=== PATIENT | male | born 1980 | race Two or more races ===

== ENCOUNTER 2021-10-19 10:31 | Inpatient (IN) | payer OTHER ==
[~2021-10-19] VITALS: Ht 170.2 cm; Wt 164.7 kg
[2021-10-19] MEDS ORDERED: SINGULAIR10 MG (10:44)
[2021-10-19] MEDS ORDERED: LOSARTAN POTASS50 MG (10:44)
[2021-10-23] MEDS ORDERED: NEURONTIN300 MG PO (11:43)
[2021-10-23] MEDS ORDERED: ACETAMINOPHEN500 M2 PO (11:44)
== END 2021-10-23 12:27 | disposition home or self-care (01) | DRG 330 ==
LOC: ER 10:31 → SURG 13:25 → SURH 13:25
PROVIDERS: ADMIT Surgery; ATTEND Surgery
PROC: 07BB4ZZ Excision of Mesenteric Lymphatic, Percutaneous Endoscopic Approach (ICD-10-PCS; 2021-10-20)
PROC: 0DTF4ZZ Resection of Right Large Intestine, Percutaneous Endoscopic Approach (ICD-10-PCS; principal; 2021-10-20 10:00)
DX: D12.0 Benign neoplasm of cecum (principal); K56.1 Intussusception; K63.89 Other specified diseases of intestine; R59.0 Localized enlarged lymph nodes; I11.9 Hypertensive heart disease without heart failure; Z20.822 Contact with and (suspected) exposure to COVID-19